=== PATIENT | male | born 2005 | race Hispanic/Latino ===

== ENCOUNTER 2024-09-18 18:20 | Emergency (ER) | payer SELFPAY ==
[~2024-09-18] VITALS: Ht 175.3 cm; Wt 54.4 kg
--- NOTE | 2024-09-18 19:40 | ERN ---
General Chief Complaint: Penis Problem Stated Complaint: SWOLLEN PENIS Time Seen by MD: 18:22 Time Seen by Midlevel: 18:22 Source: patient History of Present Illness Initial Comments 19-year-old male who presents to the emergency department due to penile swelling. Patient reports he took a Viagra at 6:00 a.m, and has noticed a swelling has continued. Patient denies any pain, difficulty urinating, penile discharge or further associated symptoms. Denies significant past medical history Allergies: Coded Allergies: No Known Drug Allergies (Unverified Allergy, Unknown, 09/18/24) Past Medical History Past Medical History: Asthma Past Surgical History: None ROS Dictation Constitutional: Negative for fever,chills, and weight loss Eyes: Negative for injury, pain,redness, and discharge ENT: Negative for injury,pain or swelling Cardiovascular: Negative for chest pain, palpitations, and edema Respiratory: Negative for shortness of breath, cough, and wheezing, Abdomen/GI: Negative for abdominal pain, nausea, vomiting, diarrhea, and constipation Back: Negative for injury and pain : Positive for penile swelling Negative for painful urination, bleeding or discharge MS/Extremity: Negative for injury and deformity Skin: Negative for rash, and discoloration Neuro: Negative for headache, weakness, numbness, tingling, and seizure Psych: Negative for suicide ideation, homicidal ideation, and hallucinations Physical Exam Physical Exam Dictation General: awake, alert, no acute distress Head/Face: Normocephalic, atraumatic Eyes: PERRL, EOMI, normal conjunctiva ENT: oral cavity clear, oral mucosa moist Neck: Supple, normal range of motion Cardiovascular: RRR, normal S1/S2 Respiratory: No respiratory distress Abdomen: Soft, non-tender, non-distended : Mouth penile swelling with no lesions, no discharge, in no tenderness Skin: Warm, dry, normal turgor, no rash MS/Extremity: Pulses equal, no cyanosis, neurovascular intact, FROM Neuro: COAx4, GCS 15, no neurological deficits, normal gait Psych: Normal behavior, mood, and affect normal MDM MDM: Differential diagnosis: Rationale: 19-year-old male who presents to the emergency department due to penile swelling. Patient reports he took a Viagra at 6:00 a.m, and has noticed a swelling has continued. Patient denies any pain, difficulty urinating, penile discharge or further associated symptoms. Denies significant past medical history Per physical examination mild swelling noted to the penis with no lesions noted, foreskin able to be retracted, no tenderness to penis or testicles. Dr. Solano ED physician evaluated patient, recommended no need for aspiration or further treatment. Dr. Solano educated patient on findings, and diagnosis. Advised to follow up with PCP. Return to the emergency department if any worsening symptoms. Patient verbalized understanding. Patient stable for discharge. There are no social concerns with this patient. I independently interpreted the test that were performed, results were reviewed by me and considered findings on radiology if ordered. Medical management and examination interpretation discussions were had by me with other qualified healthcare professionals as indicated for the patient's care. ED Course Vital Signs Date Time Temp Pulse Resp B/P (MAP) Pulse Ox O2 Delivery O2 Flow Rate FiO2 09/18/24 19:59 98.2 68 18 115/65 99 Room Air* 0 21 09/18/24 19:37 98.2 68 18 120/70 99 Room Air* 0 21 09/18/24 18:52 98.2 68 16 121/75 99 Room Air DX & DISP Disposition: Discharge Departure Impression: Primary Impression: Priapism Condition: Stable Additional Instructions: Discharge home. Rest. Follow up with primary care DrAlba in 24 hours. Return to the ER for any acute changes or worsening symptoms. If any medications were prescribed take as directed. Okay to continue home medications unless otherwise discussed during your visit in the emergency room today. Patient was also advised to follow-up with primary care physician in 1 to 2 days for continued monitoring. Referrals: SELF,REFERRAL (PCP) I performed the substantive portion of the visit. I have reviewed and personally made and approve the management plan that is documented in the notes by myself or the MARGO. I acknowledge full responsibility for the patient's management plan. PETRA JANE Sep 18, 2024 19:40
[2024-09-18 19:59] VITALS: BP 115/65; PULSE 68; RESP 18; TEMP 98.2; O2SAT 99
== END 2024-09-18 20:14 | disposition home or self-care (01) ==
LOC: EDH 18:20
DX: N48.30 Priapism, unspecified (principal); J45.909 Unspecified asthma, uncomplicated
CPT/HCPCS: 99281